=== PATIENT | male | born 1995 | race African-American/Black ===

== ENCOUNTER 2016-09-29 22:16 | Emergency (ER) | payer OTHER ==
[2016-09-29 22:42] VITALS: BP 138/76; PULSE 95; TEMP 99; BMI 28.5
== END 2016-09-29 23:20 | disposition left against medical advice (07) ==
LOC: JER 22:16
DX: Z53.21 Procedure and treatment not carried out due to patient leaving prior to being seen by health care provider (principal)
CPT/HCPCS: 99281-25

== ENCOUNTER 2016-10-02 22:53 | Emergency (ER) | payer OTHER ==
[2016-10-02 23:13] VITALS: BP 135/71; PULSE 73; TEMP 98.4; BMI 28.5
--- NOTE | 2016-10-03 00:34 | PDOC ---
History of Present Illness - General History Source: Patient Exam Limitations: No Limitations - History of Present Illness Initial Comments: 10/03/16 01:01 The patient is a 20-year old male with a significant past medical history of asthma, who presents to the emergency department with a sore throat that began a week ago. He denies any associated cough, fever, chills, headache, and dizziness. He denies any chest pain or shortness of breath. The patient reports sick contacts in his household. He denies abdominal pain, nausea, vomiting, and diarrhea. Allergies: NKDA Social History: No history of smoking, recreational drug use, or ETOH consumption. <Heather Lauren - Last Filed: 10/03/16 01:01> <Loni Tierney - Last Filed: 10/03/16 04:41> - General Chief Complaint: Sore Throat Stated Complaint: THROAT PAIN Time Seen by Provider: 10/03/16 00:29 Past History <Heather Lauren - Last Filed: 10/03/16 01:01> - Past Medical History Asthma: Yes - Immunization History Immunization Up to Date: Yes - Psycho/Social/Smoking Cessation Hx Anxiety: No Suicidal Ideation: No Smoking Status: No Smoking History: Never smoked Have you smoked in the past 12 months: No Number of Cigarettes Smoked Daily: 0 Cigars Per Day: 0 Information on smoking cessation initiated: No Hx Alcohol Use: No Drug/Substance Use Hx: No Substance Use Type: None <Loni Tierney - Last Filed: 10/03/16 04:41> - Past Medical History Allergies/Adverse Reactions: Allergies Allergy/AdvReac Type Severity Reaction Status Date / Time No Known Allergies Allergy Verified 10/02/16 23:11 Home Medications: Ambulatory Orders Albuterol Sulfate Inhaler - [Ventolin Hfa Inhaler -] 1 - 2 inh PO QID PRN Review of Systems - Review of Systems Able to Perform ROS?: Yes Comments:: 10/03/16 01:02 GENERAL/CONSTITUTIONAL: No fever or chills. No weakness. HEAD, EYES, EARS, NOSE AND THROAT: +Sore throat. No change in vision. No ear pain or discharge. CARDIOVASCULAR: No chest pain or shortness of breath. RESPIRATORY: No cough, wheezing, or hemoptysis. GASTROINTESTINAL: No nausea, vomiting, diarrhea or constipation. GENITOURINARY: No dysuria, frequency, or change in urination. MUSCULOSKELETAL: No joint or muscle swelling or pain. No neck or back pain. SKIN: No rash NEUROLOGIC: No headache, vertigo, loss of consciousness, or change in strength/ sensation. ENDOCRINE: No increased thirst. No abnormal weight change. HEMATOLOGIC/LYMPHATIC: No anemia, easy bleeding, or history of blood clots. ALLERGIC/IMMUNOLOGIC: No hives or skin allergy. <Heather Lauren - Last Filed: 10/03/16 01:01> *Physical Exam - Vital Signs Last Vital Signs Temp Pulse Resp BP Pulse Ox 98.4 F 73 14 135/71 100 10/02/16 23:11 10/02/16 23:11 10/02/16 23:11 10/02/16 23:11 10/02/16 23:11 - Physical Exam Comments: 10/03/16 01:02 GENERAL: The patient is awake, alert, and fully oriented, in no acute distress. HEAD: Normal with no signs of trauma. EYES: Pupils equal, round and reactive to light, extraoccular movements intact, sclera anicteric, conjunctiva clear with no pallor. ENT: Ears normal, nares patent, oropharynx clear without exudates. Moist mucous membranes. NECK: Normal range of motion, supple without lymphadenopathy, JVD, or masses. LUNGS: Breath sounds equal, clear to auscultation bilaterally. No wheeze/ crackles. HEART: Regular rate and rhythm, normal S1 and S2 without murmur or rub. ABDOMEN: Soft/nontender/nondistended. BS wnl. No guarding or rebound. No palpable masses. No hepatosplenomegaly. EXTREMITIES: Normal range of motion, no edema. No clubbing or cyanosis. No cords, erythema, or tenderness. NEUROLOGICAL: Cranial nerves II through XII grossly intact. Normal speech, normal gait. PSYCH: Normal mood, normal affect. SKIN: Warm, Dry, normal turgor, no rashes or lesions noted. <Heather Lauren - Last Filed: 10/03/16 01:01> - Vital Signs Last Vital Signs Temp Pulse Resp BP Pulse Ox 98.4 F 73 14 135/71 100 10/02/16 23:11 10/02/16 23:11 10/02/16 23:11 10/02/16 23:11 10/02/16 23:11 <Loni Tierney - Last Filed: 10/03/16 04:41> Medical Decision Making - Medical Decision Making 10/03/16 04:37 Pt comes with viral pharyngitis. He has no other complaints. Pt has strep negative throat sample. He is afebrile. He has no submental nodes. <Loni Tierney - Last Filed: 10/03/16 04:41> *DC/Admit/Observation/Transfer - Attestations Scribe Attestion: 10/03/16 01:01 Documentation prepared by Heather Lauren, acting as medical office assistant for Loni Tierney MD. <Heather Lauren - Last Filed: 10/03/16 01:01> - Discharge Dispostion Admit: No <Loni Tierney - Last Filed: 10/03/16 04:41> Diagnosis at time of Disposition: Viral syndrome - Discharge Dispostion Disposition: HOME Condition at time of disposition: Stable - Patient Instructions Printed Discharge Instructions: DI for Viral Pharyngitis - Post Discharge Activity Work/School Note: Back to Work
== END 2016-10-03 01:44 | disposition home or self-care (01) ==
LOC: JER 22:53
DX: J02.9 Acute pharyngitis, unspecified (principal); B97.89 Other viral agents as the cause of diseases classified elsewhere; J45.909 Unspecified asthma, uncomplicated
CPT/HCPCS: 87070; 87430; 99281-25; 99282-25

== ENCOUNTER 2017-02-17 22:13 | Emergency (ER) | payer OTHER ==
[2017-02-17 22:26] VITALS: BMI 26.4
--- NOTE | 2017-02-17 23:25 | PDOC ---
History of Present Illness - General Chief Complaint: Headache Stated Complaint: PAIN Time Seen by Provider: 02/17/17 23:19 History Source: Patient Exam Limitations: No Limitations - History of Present Illness Initial Comments: 02/17/17 23:24 21yo Male patient w/ PmHx: Asthma presents to ED c/o headache, rapid heart rate , and intermittent right leg pain which began 3 days ago. OTC Tylenol for symptom management. Denies n/v/d, fever, dizziness, CP, Abd pain, back pain, diff breathing or any other complaints at this time. Family Hx: DM, HTN, Renal Failure. PCP- Tan. Timing/Duration: reports: 1 week Severity: Yes: mild Associated Symptoms: denies: denies symptoms, confusion, fatigue, fever/chills, insomnia, loss of consciousness, muscle spasms, nausea/vomiting, numbness in legs/feet, paresthesia, ringing in ears, seizures, sleepy, slurred speech, tingling in legs/feet, trouble walking, vision changes, weakness, other Past History - Travel Traveled outside of the country in the last 30 days: No Close contact w/someone who was outside of country & ill: No - Past Medical History Allergies/Adverse Reactions: Allergies Allergy/AdvReac Type Severity Reaction Status Date / Time No Known Allergies Allergy Verified 02/17/17 22:23 Home Medications: Ambulatory Orders Albuterol Sulfate Inhaler - [Ventolin Hfa Inhaler -] 1 - 2 inh PO QID PRN Acetaminophen [Tylenol] 650 mg PO QID PRN 02/17/17 Asthma: Yes - Immunization History Immunization Up to Date: Yes - Psycho/Social/Smoking Cessation Hx Anxiety: No Suicidal Ideation: No Smoking Status: No Smoking History: Never smoked Have you smoked in the past 12 months: No Number of Cigarettes Smoked Daily: 0 Cigars Per Day: 0 Hx Alcohol Use: No Drug/Substance Use Hx: No Substance Use Type: None Review of Systems - Review of Systems Able to Perform ROS?: Yes Is the patient limited [place] proficient: No Constitutional: No: Chills, Fever HEENTM: No: Blurred Vision, Double Vision Respiratory: No: Cough, Shortness of Breath, Stridor, Wheezing Cardiac (ROS): No: Chest Pain, Lightheadedness, Palpitations ABD/GI: No: Blood Streaked Bowels, Constipated, Diarrhea, Nausea, Poor Appetite , Poor Fluid Intake, Vomiting : No: Burning, Dysuria, Discharge, Flank Pain, Hematuria Musculoskeletal: No: Back Pain Integumentary: No: Bruising, Erythema, Rash, Sweating Neurological: Yes: Headache. No: Numbness, Seizure, Tremors, Unsteady Gait, Ataxia, Dizziness All Other Systems: Reviewed and Negative *Physical Exam - Vital Signs Last Vital Signs Temp Pulse Resp BP Pulse Ox 98 F 88 16 120/64 98 02/17/17 22:25 02/17/17 22:25 02/17/17 22:25 02/17/17 22:25 02/17/17 22:25 - Physical Exam General Appearance: Yes: Nourished, Appropriately Dressed. No: Apparent Distress, Mild Distress, Moderate Distress, Severe Distress HEENT: positive: EOMI, MAYRA, Normal ENT Inspection, Normal Voice, Symmetrical, TMs Normal, Pharynx Normal. negative: Pharyngeal Erythema, Tonsillar Exudate, Tonsillar Erythema, Nasal Congestion, Rhinorrhea, Sinus Tenderness, TM Bulging, TM Dull, TM Erythema Neck: positive: Trachea midline, Supple. negative: Rigid, Decreased range of motion, Stridor, Lymphadenopathy (R), Lymphadenopathy (L) Respiratory/Chest: positive: Lungs Clear, Normal Breath Sounds. negative: Respiratory Distress, Accessory Muscle Use, Labored Respiration, Rapid RR Cardiovascular: positive: Regular Rhythm, Regular Rate Gastrointestinal/Abdominal: positive: Normal Bowel Sounds, Soft. negative: Distended, Guarding, Rebound, Tenderness Musculoskeletal: positive: Normal Inspection. negative: CVA Tenderness Extremity: positive: Normal Capillary Refill, Normal Inspection, Normal Range of Motion. negative: Pedal Edema, Swelling, Calf Tenderness, Erythema, Inflammation Integumentary: positive: Normal Color, Dry, Warm Neurologic: positive: pharmaceutical process engineer II-XII NML intact, Fully Oriented, Alert, Normal Mood/ Affect, Normal Response, Motor Strength 5/5 Heart Score/ECG Review - ECG Impressions Normal ECG: Yes Non-specific ST Elevation: No Ischemic Changes: No Bradycardia: No Torsades erica Pointes: No WPW: No Comment:: 02/18/17 02:40 NSR 72bpm ED Treatment Course - LABORATORY CBC & Chemistry Diagram: 02/17/17 23:40 02/17/17 23:40 - RADIOLOGY Radiology Studies Ordered: Category Date Time Status HEAD CT WITHOUT CONTRAST [CT] Stat CT Scan 02/17/17 23:19 Ordered *DC/Admit/Observation/Transfer Diagnosis at time of Disposition: Headache Qualifiers: Headache type: tension-type Headache chronicity pattern: episodic headache Intractability: not intractable Qualified Code(s): G44.219 - Episodic tension- type headache, not intractable - Discharge Dispostion Disposition: HOME Condition at time of disposition: Stable Admit: No - Referrals Referrals: Harriet Grover MD [Primary Care Provider] - Elías Crisostomo MD [Staff Physician] - - Patient Instructions Printed Discharge Instructions: DI for Migraine Additional Instructions: FOLLOW UP WITH DR. CRISOSTOMO (NEUROLOGY) NEXT WEEK. CALL TO SCHEDULE APPOINTMENT IF SYMPTOMS PERSIST. MOTRIN OR TYLENOL FOR PAIN NEEDED. Print Language: BHUTANESE - Post Discharge Activity Work/School Note: Back to Work
[2017-02-17 23:51] LABS: BASOPHIL 0.6 % (0-2.0); EOSINOPHIL 1.1 % (0-4.5); MCH 26.1 pg (25.7-33.7); MCHC 33.3 g/dl (32.0-35.9); MEAN CELL VOLUME 78.4 fl (80-96); MEAN PLT VOLUME 10.1 fl (7.5-11.1); NEUTROPHILS 62.2 % (42.8-82.8); PLATELET COUNT 175 K/MM3 (134-434); RDW 14.7 % (11.9-15.9); WHITE BLOOD COUNT 7.3 K/mm3 (4.0-10.0)
[2017-02-18 00:07] LABS: URINE APPEARANCE CLEAR; URINE BILIRUBIN NEGATIVE (NEGATIVE); URINE BLOOD NEGATIVE (NEGATIVE); URINE COLOR LTYELLOW; URINE GLUCOSE (UA) NEGATIVE (NEGATIVE); URINE KETONE NEGATIVE (NEGATIVE); URINE LEUK ESTERASE NEGATIVE (NEGATIVE); URINE NITRITE NEGATIVE (NEGATIVE); URINE PROTEIN NEGATIVE (NEGATIVE); URINE UROBILINOGEN NEGATIVE E.U./dl (0.2-1.0)
[2017-02-18 00:14] LABS: ALBUMIN 4.5 g/dl (3.4-5.0); ALK PHOS 77 U/L (45-117); ANION GAP 11 (8-16); CALCIUM 9.4 mg/dL (8.5-10.1); CO2 29 mmol/L (21-32); COCKROFT - GAULT 119.77; CREATININE 1.2 mg/dL (0.7-1.3); GLUCOSE,RANDOM 101 mg/dL (74-106); SGOT/AST 13 U/L (15-37); SGPT/ALT 26 U/L (12-78); TOT PROT 7.6 g/dl (6.4-8.2)
[2017-02-18 00:42] LABS: URINE MARIJUANA THC NEGATIVE ng/ml (CUTOFF=50)
[2017-02-18 02:57] VITALS: BP 122/68; PULSE 83; TEMP 98.2
--- NOTE | 2017-02-18 13:07 | EKG ---
Test Reason : Blood Pressure : / mmHG Vent. Rate : 072 BPM Atrial Rate : 072 BPM P-R Int : 156 ms QRS Dur : 088 ms QT Int : 364 ms P-R-T Axes : 065 059 016 degrees QTc Int : 398 ms POOR DATA QUALITY, INTERPRETATION MAY BE ADVERSELY AFFECTED NORMAL SINUS RHYTHM WITH SINUS ARRHYTHMIA SEPTAL INFARCT , AGE UNDETERMINED ABNORMAL ECG WHEN COMPARED WITH ECG OF 23-APR-2016 01:24, NO SIGNIFICANT CHANGE WAS FOUND Confirmed by STEPHEN RAHMAN MD ([id number]) on 02/18/2017 1:07:11 PM Referred By: Confirmed By:STEPHEN RAHMAN MD
== END 2017-02-18 02:59 | disposition home or self-care (01) ==
LOC: JER 22:13
DX: G44.219 Episodic tension-type headache, not intractable (principal); J45.909 Unspecified asthma, uncomplicated
CPT/HCPCS: 36415; 70450-TC; 80053; 80307; 81003; 84443; 85025; 93005; 93010; 99282-25

== ENCOUNTER 2017-05-04 05:34 | Emergency (ER) | payer OTHER ==
[2017-05-04] MEDS ORDERED: KETOROLAC TROMETHAMINE 60 MG/2 ML VIAL IM ONE (05:52)
[2017-05-04] MEDS ORDERED: KETOROLAC TROMETHAMINE 60 MG/2 ML VIAL ONE (05:56)
[2017-05-04 06:11] VITALS: BP 133/76; PULSE 60; TEMP 98.2; BMI 27.1
--- NOTE | 2017-05-04 06:39 | PDOC ---
History of Present Illness - General Chief Complaint: Pain Stated Complaint: LEFT-SIDED PAIN Time Seen by Provider: 05/04/17 05:50 - History of Present Illness Initial Comments: 05/04/17 06:35 CHIEF COMPLAINT: mid back pain HISTORY OF PRESENT ILLNESS: 21 yo M hx of asthma presents to ED with left midback pain. 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 Over the last four days the pain has increased and is worsened with movement. He denies any trauma or injury to the area of pain. He denies any loss of sensation, numbness or tingling to his extremities. PAST MEDICAL HISTORY: asthma FAMILY HISTORY: Denies SOCIAL HISTORY: Occupation: farmworkers. Denies tobacco, alcohol, illicit drug use. SURGICAL HISTORY: Denies ALLERGIES: No known drug allergies REVIEW OF SYSTEMS General/Constitutional: Denies fever or chills. Denies weakness, weight change. Cardiovascular: Denies chest pain or shortness of breath. Respiratory: Denies cough, wheezing, or hemoptysis. Gastrointestinal: Denies nausea, vomiting, diarrhea or constipation. Genitourinary: Denies dysuria, frequency, or change in urination. Musculoskeletal: L mid back pain x 3 days. Skin and breasts: Denies rash or easy bruising. PHYSICAL EXAM General Appearance: Well-appearing, appropriately dressed. No apparent distress. HEENT: EOMI, PERRLA, normal ENT inspection, normal voice, TMs normal, pharynx normal. No conjunctival pallor. No photophobia, scleral icterus. Neck: No cervical spine Supple. Trachea midline. Respiratory/Chest: Lungs CTAB. Cardiovascular: RRR. S1, S2. Gastrointestinal/Abdominal: Normal bowel sounds. Abdomen soft, non-distended. No tenderness or rebound tenderness. No organomegaly, pulsatile mass, guarding , hernia, hepatomegaly, splenomegaly. Musculoskeletal/Extremities: Reproducible tenderness to L latissimus dorsi, Normal inspection. FROM of all extremities, normal capillary refill. Pelvis Stable. No CVA tenderness. No tenderness to extremities, pedal edema, swelling , erythema or deformity. Integumentary: Appropriate color, dry, warm. No cyanosis, erythema, jaundice or rash Neurologic: tip printer II-XII intact. Fully oriented, alert. Appropriate mood/affect. Motor strength 5/5. No appreciable EOM palsy, facial droop or sensory deficit. 05/04/17 06:41 05/04/17 06:49 Past History - Past Medical History Allergies/Adverse Reactions: Allergies Allergy/AdvReac Type Severity Reaction Status Date / Time No Known Allergies Allergy Verified 05/04/17 05:45 Home Medications: Ambulatory Orders Albuterol Sulfate Inhaler - [Ventolin Hfa Inhaler -] 1 - 2 inh PO QID PRN Diazepam [Valium] 5 mg PO BID #10 tablet MDD 2 05/04/17 Naproxen 250 mg PO BID #14 tablet 05/04/17 Asthma: Yes - Immunization History Immunization Up to Date: Yes - Psycho/Social/Smoking Cessation Hx Anxiety: No Suicidal Ideation: No Smoking Status: No Smoking History: Never smoked Have you smoked in the past 12 months: No Number of Cigarettes Smoked Daily: 0 Cigars Per Day: 0 Information on smoking cessation initiated: No Hx Alcohol Use: No Drug/Substance Use Hx: No Substance Use Type: None *Physical Exam - Vital Signs Last Vital Signs Temp Pulse Resp BP Pulse Ox 98.2 F 60 20 133/76 99 05/04/17 05:46 05/04/17 05:46 05/04/17 05:46 05/04/17 05:46 05/04/17 05:46 ED Treatment Course - RADIOLOGY Radiology Studies Ordered: Category Date Time Status RIBS-LEFT SIDE [RAD] Stat Radiology 05/04/17 06:30 Ordered - Medications Given in the ED: ED Medications Discontinued Medications Generic Name Dose Route Start Last Admin Trade Name Freq PRN Reason Stop Dose Admin Ketorolac Tromethamine 60 mg 05/04/17 05:52 05/04/17 06:04 Toradol Injection - IM 05/04/17 05:53 60 mg ONCE ONE Administration Medical Decision Making - Medical Decision Making 05/04/17 06:41 21 yo M hx of asthma presents to ED with left midback pain. -L rib x-ray -60 mg Toradol *DC/Admit/Observation/Transfer Diagnosis at time of Disposition: Back pain Qualifiers: Back pain location: thoracic back pain Chronicity: acute Back pain laterality: left Qualified Code(s): M54.6 - Pain in thoracic spine - Discharge Dispostion Admit: No - Prescriptions Prescriptions: Naproxen 250 mg PO BID #14 tablet Diazepam [Valium] 5 mg PO BID #10 tablet MDD 2 - Referrals Referrals: Jayy Mccarty MD [Primary Care Provider] - Louis Torres MD [Staff Physician] - - Patient Instructions Printed Discharge Instructions: DI for Thoracic Back Pain Additional Instructions: Please take medications as prescribed. Do not drive or operate machinery while taking Valium. Follow up with orthopedics (referral provided) if symptoms persist past 3-4 days. If you experience any shortness of breath, chest pain, loss of sensation/numbness/tingling to your arms, or any new or worsening symptoms, please return to the ER.
--- NOTE | 2017-05-04 06:47 | PDOC ---
*Physical Exam - Vital Signs Last Vital Signs Temp Pulse Resp BP Pulse Ox 98.2 F 60 20 133/76 99 05/04/17 05:46 05/04/17 05:46 05/04/17 05:46 05/04/17 05:46 05/04/17 05:46 ED Treatment Course - Medications Given in the ED: ED Medications Discontinued Medications Generic Name Dose Route Start Last Admin Trade Name Susan PRN Reason Stop Dose Admin Ketorolac Tromethamine 60 mg 05/04/17 05:52 05/04/17 06:04 Toradol Injection - IM 05/04/17 05:53 60 mg ONCE ONE Administration Medical Decision Making - Medical Decision Making 05/04/17 06:44 Agree with TUG BOAT ENGINEER's evaluation, assessment, and plan. 21M presenting to ER with L side pain after lifting a heavy object 2 days ago. Pt states that pain has gradually worsened. It is reproducible with palpation but also worse with deep inspiration. Pt with PERC score 0. Unlikely PE. Etiology most likely msk given reproducibility with movement and palpation, as well as onset during heavy lifting. Will r/o pneumothorax and rib fx with CXR. - XR chest+ribs - Analgesia *DC/Admit/Observation/Transfer Diagnosis at time of Disposition: Back pain Qualifiers: Back pain location: thoracic back pain Chronicity: acute Back pain laterality: left Qualified Code(s): M54.6 - Pain in thoracic spine - Prescriptions Prescriptions: Naproxen 250 mg PO BID #14 tablet Diazepam [Valium] 5 mg PO BID #10 tablet MDD 2 - Referrals Referrals: Jayy Mccarty MD [Primary Care Provider] - Louis Torres MD [Staff Physician] - - Patient Instructions Printed Discharge Instructions: DI for Thoracic Back Pain Additional Instructions: Please take medications as prescribed. Do not drive or operate machinery while taking Valium. Follow up with orthopedics (referral provided) if symptoms persist past 3-4 days. If you experience any shortness of breath, chest pain, loss of sensation/numbness/tingling to your arms, or any new or worsening symptoms, please return to the ER. - Attestations Physician Attestion: 05/04/17 06:47 I, Dr. Bryant Evans MD, attest that this document has been prepared under my direction and personally reviewed by me in its entirety. I further attest, that it accurately reflects all work, treatment, procedures and medical decision -making performed by me.
[2017-05-04 07:45] LABS: URINE APPEARANCE CLEAR; URINE BILIRUBIN NEGATIVE (NEGATIVE); URINE BLOOD NEGATIVE (NEGATIVE); URINE COLOR YELLOW; URINE GLUCOSE (UA) NEGATIVE (NEGATIVE); URINE KETONE NEGATIVE (NEGATIVE); URINE LEUK ESTERASE NEGATIVE (NEGATIVE); URINE NITRITE NEGATIVE (NEGATIVE); URINE PROTEIN NEGATIVE (NEGATIVE); URINE UROBILINOGEN NEGATIVE mg/dL (0.2-1.0)
== END 2017-05-04 07:00 | disposition home or self-care (01) ==
LOC: JER 05:34
PROC: 3E0233Z Introduction of Anti-inflammatory into Muscle, Percutaneous Approach (ICD-10-PCS; principal; 2017-05-04)
DX: M54.6 Pain in thoracic spine (principal); J45.909 Unspecified asthma, uncomplicated
CPT/HCPCS: 71101-TC; 81003; 87086; 96372; 99282-25

== ENCOUNTER 2017-11-16 22:21 | Emergency (ER) | payer OTHER ==
[2017-11-16 22:42] VITALS: BP 142/79; PULSE 96; TEMP 99.2; BMI 25.0
[2017-11-16] MEDS ORDERED: HYDROCORTISONE ACETATE 25 MG/SUPP.RECT PR ONE (23:58)
--- NOTE | 2017-11-16 23:59 | PDOC ---
History of Present Illness - General History Source: Patient Exam Limitations: No Limitations - History of Present Illness Initial Comments: 11/16/17 23:59 The patient is a 21 year old male, with a significant past medical history of asthma, who presents to the emergency department complaining of hemorrhoids for approx. 3 days. The patient reports he has recently been experiencing pain when having a bowel movement. He denies any recent diarrhea, hematochezia or melena. The patent reports he tried using prep H for the hemorrhoids with minimal relief. The patient reports he came to the emergency department today for evaluation of the hemorrhoid pain. He denies any recent fevers, chills, headache or dizziness. He denies any recent nausea, vomit, diarrhea or constipation. He denies any recent chest pain or shortness of breath. He denies any recent dysuria, frequency, urgency or hematuria. Allergies: NKA <Gildardo Robertson - Last Filed: 11/16/17 23:59> <Parvin Devi - Last Filed: 11/17/17 00:04> - General Chief Complaint: Pain Stated Complaint: PAIN Time Seen by Provider: 11/16/17 23:07 Past History <Gildardo Robertson - Last Filed: 11/16/17 23:59> - Past Medical History Asthma: Yes COPD: No - Immunization History Immunization Up to Date: Yes - Suicide/Smoking/Psychosocial Hx Smoking Status: No Smoking History: Never smoked Have you smoked in the past 12 months: No Number of Cigarettes Smoked Daily: 0 Cigars Per Day: 0 Information on smoking cessation initiated: No Hx Alcohol Use: No Drug/Substance Use Hx: No Substance Use Type: None <Parvin Devi - Last Filed: 11/17/17 00:04> - Past Medical History Allergies/Adverse Reactions: Allergies Allergy/AdvReac Type Severity Reaction Status Date / Time No Known Allergies Allergy Verified 11/16/17 22:38 Home Medications: Ambulatory Orders Albuterol Sulfate Inhaler - [Ventolin Hfa Inhaler -] 1 - 2 inh PO QID PRN Diazepam [Valium] 5 mg PO BID #10 tablet MDD 2 05/04/17 Naproxen 250 mg PO BID #14 tablet 05/04/17 Docusate Sodium [Colace] 100 mg PO DAILY #14 capsule 11/16/17 Hydrocortisone Acetate [Anusol Hc Suppository -] 25 mg RC DAILY #7 supp.rect Review of Systems - Review of Systems Comments:: 11/16/17 23:59 CONSTITUTIONAL: Absent: fever, no chills, no fatigue EYES: Absent: visual changes ENT: Absent: ear pain, no sore throat CARDIOVASCULAR: Absent: chest pain, no palpitations RESPIRATORY: Absent: cough, no SOB GI: Present: +Pain with bowel movement. Absent: abdominal pain, no nausea, no vomiting, no constipation, no diarrhea GENITOURINARY: Absent: dysuria, no frequency, no hematuria MUSKULOSKELETAL: Absent: back pain, no arthralgia, no myalgia SKIN: Absent: rash NEURO: Absent: headache <Gildardo Robertson - Last Filed: 11/16/17 23:59> *Physical Exam - Vital Signs Last Vital Signs Temp Pulse Resp BP Pulse Ox 99.2 F 96 H 20 142/79 98 11/16/17 22:39 11/16/17 22:39 11/16/17 22:39 11/16/17 22:39 11/16/17 22:39 - Physical Exam Comments: 11/17/17 00:00 GENERAL: Well-appearing, well-nourished. No apparent distress. HEENT: Normocephalic, atraumatic. PERRL, EOM intact. CARDIOVASCULAR: Normal S1, S2. Regular rate and rhythm. PULMONARY: Clear to auscultation bilaterally. ABDOMEN: Soft, non-distended, non-tender. RECTAL: No external hemorrhoids EXTREMITIES: Normal ROM in all four extremities. No gross deformities. SKIN: Warm, dry. No rash NEUROLOGICAL: No focal neurological deficits. <Gildardo Robertson - Last Filed: 11/16/17 23:59> - Vital Signs Last Vital Signs Temp Pulse Resp BP Pulse Ox 99.2 F 96 H 20 142/79 98 11/16/17 22:39 11/16/17 22:39 11/16/17 22:39 11/16/17 22:39 11/16/17 22:39 <Parvin Devi - Last Filed: 11/17/17 00:04> *DC/Admit/Observation/Transfer - Attestations Scribe Attestion: 11/17/17 00:00 Documentation prepared by Gildardo Robertson, acting as medical referral coordinator for Parvin Devi MD. <Gildardo Robertson - Last Filed: 11/16/17 23:59> <Parvin Devi - Last Filed: 11/17/17 00:04> Diagnosis at time of Disposition: External hemorrhoid - Discharge Dispostion Disposition: HOME Condition at time of disposition: Stable - Prescriptions Prescriptions: Docusate Sodium [Colace] 100 mg PO DAILY #14 capsule Hydrocortisone Acetate [Anusol Hc Suppository -] 25 mg RC DAILY #7 supp.rect - Referrals Referrals: Vaishali Maddox MD [Primary Care Provider] - - Patient Instructions Printed Discharge Instructions: DI for Hemorrhoids Additional Instructions: You can try Tucks which you can buy over the counter Avoid constipation and the colace will help you with this Please cotton picker operator your medication at [facility] Follow up with your regular doctor return for worsening symptoms - Post Discharge Activity
[2017-11-17] MEDS ORDERED: PHENYLEPHRINE 0.25%/STARCH 1 EACH SUPP.RECT RC ONE
== END 2017-11-17 00:12 | disposition home or self-care (01) ==
LOC: JER 22:21
DX: K64.4 Residual hemorrhoidal skin tags (principal); J45.909 Unspecified asthma, uncomplicated
CPT/HCPCS: 99282-25

== ENCOUNTER 2017-11-27 05:29 | Emergency (ER) | payer SELFPAY ==
--- NOTE | 2017-11-27 05:54 | PDOC ---
History of Present Illness - General Chief Complaint: Sore Throat Stated Complaint: SORE THROAT,COUGH Time Seen by Provider: 11/27/17 05:51 History Source: Patient Exam Limitations: No Limitations - History of Present Illness Initial Comments: 11/27/17 05:58 Best Contact:[phone] Pmhx:Asthma Pshx:N/A Allergies: NKDA 22-year-old male presents to the emergency department complaining of sore throat times one week without fever, chills, nausea/vomiting, facial pains, rhinorrhea, earache, cough, neck/back pain/stiffness, chest pain, shortness of breath, abdominal pains. Patient states he did not he took NyQuil with some relief. Patient denies any other complaints. Timing/Duration: 1 week Past History - Past Medical History Allergies/Adverse Reactions: Allergies Allergy/AdvReac Type Severity Reaction Status Date / Time No Known Allergies Allergy Verified 11/27/17 06:07 Home Medications: Ambulatory Orders NK [No Known Home Medication] 11/27/17 Asthma: Yes COPD: No - Immunization History Immunization Up to Date: Yes - Suicide/Smoking/Psychosocial Hx Smoking Status: No Smoking History: Never smoked Have you smoked in the past 12 months: No Number of Cigarettes Smoked Daily: 0 Cigars Per Day: 0 Hx Alcohol Use: No Drug/Substance Use Hx: No Substance Use Type: None Review of Systems - Review of Systems Able to Perform ROS?: Yes Comments:: 11/27/17 05:57 CONSTITUTIONAL: Absent: fever, chills, diaphoresis, generalized weakness, malaise, loss of appetite HEENT: +throat pain Absent: rhinorrhea, nasal congestion, , throat swelling, difficulty swallowing, mouth swelling, ear pain, eye pain, visual Changes CARDIOVASCULAR: Absent: chest pain, loss of consciousness, palpitations, irregular heart rate, peripheral edema RESPIRATORY: Absent: cough, shortness of breath, dyspnea with exertion, orthopnea, wheezing, stridor, hemoptysis GASTROINTESTINAL: Absent: abdominal pain, abdominal distension, nausea, vomiting, diarrhea, constipation, melena, hematochezia SKIN: Absent: rash, itching, pallor Is the patient limited Beninese proficient: No *Physical Exam - Physical Exam Comments: 11/27/17 05:57 GENERAL: Well developed, well nourished. Awake and alert. No acute distress. HEENT: Normocephalic, atraumatic. PERRLA, EOMI. No conjunctival pallor. Sclera are non- icteric. Moist mucous membranes. Oropharynx is clear. NECK: Supple. Full ROM. No JVD. Carotid pulses 2+ and symmetric, without bruits. No thyromegaly. No lymphadenopathy. CARDIOVASCULAR: Regular rate and rhythm. No murmurs, rubs, or gallops. Distal pulses are 2+ and symmetric. PULMONARY: No evidence of respiratory distress. Lungs clear to auscultation bilaterally. No wheezing, rales or rhonchi. ABDOMINAL: Soft. Non-tender. Non-distended. No rebound or guarding. No organomegaly. Normoactive bowel sounds. MUSCULOSKELETAL Normal range of motion at all joints. No bony deformities or tenderness. No CVA tenderness. SKIN: Warm and dry. Normal capillary refill. No rashes. No jaundice. *DC/Admit/Observation/Transfer Diagnosis at time of Disposition: Viral pharyngitis - Discharge Dispostion Disposition: HOME Condition at time of disposition: Fair Admit: No - Referrals Referrals: Vaishali Maddox MD [Primary Care Provider] - - Patient Instructions Printed Discharge Instructions: DI for Viral Pharyngitis Additional Instructions: Tylenol alternate with Motrin as needed for pain Gargle with salt water Follow up with your physician Return to the ER for severe/persistent/worsening symptoms - Post Discharge Activity
--- NOTE | 2017-11-27 05:57 | PDOC ---
Medical Decision Making - Medical Decision Making 11/27/17 05:56 Pt seen by the Advanced Practice Provider under my direct supervision Ancillary studies reviewed I agree with plan as outlined by the Advanced Practice Provider KORY Jaimes *DC/Admit/Observation/Transfer - Discharge Dispostion Condition at time of disposition: Fair - Referrals Referrals: Vaishali Maddox MD [Primary Care Provider] - - Patient Instructions - Post Discharge Activity
[2017-11-27 06:07] VITALS: BP 140/73; PULSE 110; TEMP 98.9; BMI 25.7
== END 2017-11-27 06:43 | disposition home or self-care (01) ==
LOC: JER 05:29
DX: J02.8 Acute pharyngitis due to other specified organisms (principal); B97.89 Other viral agents as the cause of diseases classified elsewhere
CPT/HCPCS: 87070; 87430; 99282-25

== ENCOUNTER 2018-01-05 16:46 | Emergency (ER) | payer OTHER ==
--- NOTE | 2018-01-05 17:28 | PDOC ---
Rapid Medical Evaluation Chief Complaint: Pain Time Seen by Provider: 01/05/18 17:26 Medical Evaluation: Allergies Allergy/AdvReac Type Severity Reaction Status Date / Time No Known Allergies Allergy Verified 01/05/18 17:23 01/05/18 17:26 I have performed a brief in-person evaluation of this patient. The patient presents with a chief complaint of: R leg pain x 2 weeks, pain shooting up and down leg, ambulatory, can bear weight on leg, denies swelling to legs, denies trauma/injury Pertinent physical exam findings: well appearing, full ROM I have ordered the following: nothing The patient will proceed to the ED for further evaluation. Discharge Disposition - Diagnosis Right leg pain - Referrals - Patient Instructions - Post Discharge Activity
[2018-01-05 17:29] VITALS: BP 141/90; PULSE 95; TEMP 98.9; BMI 25.7
[2018-01-05] MEDS ORDERED: IBUPROFEN 400 MG TABLET (FP) PO ONE ×2 (17:43→17:46)
--- NOTE | 2018-01-05 17:48 | PDOC ---
History of Present Illness - General Chief Complaint: Pain Stated Complaint: PAIN Time Seen by Provider: 01/05/18 17:26 History Source: Patient - History of Present Illness Occurred: reports: other Severity: Yes: moderate Lower Extremity Pain Location: right: knee Past History - Past Medical History Allergies/Adverse Reactions: Allergies Allergy/AdvReac Type Severity Reaction Status Date / Time No Known Allergies Allergy Verified 01/05/18 17:23 Home Medications: Ambulatory Orders NK [No Known Home Medication] 11/27/17 Asthma: Yes COPD: No - Immunization History Immunization Up to Date: Yes - Suicide/Smoking/Psychosocial Hx Smoking Status: No Smoking History: Never smoked Have you smoked in the past 12 months: No Number of Cigarettes Smoked Daily: 0 Cigars Per Day: 0 Information on smoking cessation initiated: No Hx Alcohol Use: No Drug/Substance Use Hx: No Substance Use Type: None Review of Systems - Review of Systems Constitutional: No: Chills, Fever Musculoskeletal: Yes: Joint Pain. No: Joint Swelling *Physical Exam - Vital Signs Last Vital Signs Temp Pulse Resp BP Pulse Ox 98.9 F 95 H 18 141/90 97 01/05/18 17:25 01/05/18 17:25 01/05/18 17:25 01/05/18 17:25 01/05/18 17:25 - Physical Exam General Appearance: Yes: Appropriately Dressed. No: Apparent Distress HEENT: positive: Normal Voice Neck: positive: Supple Respiratory/Chest: negative: Respiratory Distress Extremity: positive: Normal Inspection, Normal Range of Motion, Swelling. negative: Tender Integumentary: positive: Dry, Warm Neurologic: positive: Fully Oriented, Alert, Normal Mood/Affect Medical Decision Making - Medical Decision Making 01/05/18 17:43 22-year-old male, no significant history, here with right knee pain. Patient reports intermittent right knee pain 2 weeks, worse with certain movements and bearing weight. Taking Motrin and Tylenol with some relief. Denies any trauma but states he does a lot of heavy lifting at work. Denies any swelling, fever or chills. No history of similar pain in the past. Patient well-appearing and stable with unremarkable exam. Pain most likely muscular, i.e. overuse. Patient to continue [id number] medication. Given oEvra referral to *DC/Admit/Observation/Transfer Diagnosis at time of Disposition: Right knee pain Qualifiers: Chronicity: acute Qualified Code(s): M25.561 - Pain in right knee - Discharge Dispostion Disposition: HOME Condition at time of disposition: Good - Referrals Referrals: Vaishali Maddox MD [Primary Care Provider] - Keven Mejía MD [Staff Physician] - - Patient Instructions Printed Discharge Instructions: DI for Knee Pain Additional Instructions: Continue taking Motrin or Tylenol for pain. Follow-up with Dr. Mejía of orthopedics in 1-2 weeks - Post Discharge Activity
== END 2018-01-05 17:53 | disposition home or self-care (01) ==
LOC: JERFT 16:46
DX: M25.561 Pain in right knee (principal)
CPT/HCPCS: 99281-25

== ENCOUNTER 2018-08-25 16:06 | Emergency (ER) | payer OTHER ==
[2018-08-25 16:12] VITALS: BP 138/68; PULSE 102; TEMP 98.1; BMI 25.7
[2018-08-25] MEDS ORDERED: IBUPROFEN 600 MG TABLET (FP) PO ONE ×2 (16:48→16:56)
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
[2018-08-25 17:26] LABS: URINE APPEARANCE CLEAR; URINE BILIRUBIN NEGATIVE (<2.0 mg/dL); URINE COLOR STRAW; URINE GLUCOSE (UA) NEGATIVE (NEGATIVE); URINE KETONE NEGATIVE (NEGATIVE); URINE LEUK ESTERASE NEGATIVE (NEGATIVE); URINE NITRITE NEGATIVE (NEGATIVE); URINE PROTEIN NEGATIVE (NEGATIVE); URINE UROBILINOGEN NEGATIVE mg/dL (0.2-1.0)
== END 2018-08-25 18:08 | disposition home or self-care (01) ==
LOC: JERFT 16:06
DX: N41.9 Inflammatory disease of prostate, unspecified (principal); Z86.19 Personal history of other infectious and parasitic diseases
CPT/HCPCS: 81003; 87086; 99281-25

== ENCOUNTER 2018-09-18 11:13 | Emergency (ER) | payer OTHER ==
[2018-09-18 11:35] VITALS: BP 126/74; PULSE 96; TEMP 98.4; BMI 25.7
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
== END 2018-09-18 13:12 | disposition home or self-care (01) ==
LOC: JERFT 11:13
DX: S16.1XXA Strain of muscle, fascia and tendon at neck level, initial encounter (principal); S29.012A Strain of muscle and tendon of back wall of thorax, initial encounter; V43.62XA Car passenger injured in collision with other type car in traffic accident, initial encounter; Y92.414 Local residential or business street as the place of occurrence of the external cause; Y93.89 Activity, other specified; Y99.8 Other external cause status
CPT/HCPCS: 99281-25

== ENCOUNTER 2018-09-19 16:26 | Emergency (ER) | payer OTHER ==
[2018-09-19 16:37] VITALS: BP 136/58; PULSE 91; TEMP 98.7; BMI 25.7
--- NOTE | 2018-09-19 18:00 | PDOC ---
History of Present Illness - General Chief Complaint: Palpitations Stated Complaint: CHEST PAIN Time Seen by Provider: 09/19/18 17:13 History Source: Patient Exam Limitations: No Limitations - History of Present Illness Initial Comments: 09/19/18 17:39 22 year old man with history of asthma and heart palpitations who presents with a 2 min episode of "heart flutters" associated with slight lightheadedness. The patient has had these episodes for the past 10 years and they typically occur 2-3 times a year, last for 2 min and resolve on their own. The patient reports that the episodes worsen with lying back. The patient denies shortness of breath, nausea or diaphoresis with these symptoms. He denies recent illness, fevers, travel, vomiting, diarrhea, dysuria, hematuria. He has no other complaints at bedside. PCP: Tan Past History - Past Medical History Allergies/Adverse Reactions: Allergies Allergy/AdvReac Type Severity Reaction Status Date / Time No Known Allergies Allergy Verified 09/18/18 11:32 Home Medications: Ambulatory Orders NK [No Known Home Medication] 09/19/18 Asthma: Yes COPD: No - Surgical History Cholecystectomy: No Lung Surgery: No - Immunization History Immunization Up to Date: Yes - Suicide/Smoking/Psychosocial Hx Smoking Status: No Smoking History: Never smoked Have you smoked in the past 12 months: No Number of Cigarettes Smoked Daily: 0 Cigars Per Day: 0 Information on smoking cessation initiated: No Hx Alcohol Use: No Drug/Substance Use Hx: No Substance Use Type: None Review of Systems - Review of Systems Able to Perform ROS?: Yes Is the patient limited Nigerian proficient: No Constitutional: No: Chills, Diaphoresis, Fever HEENTM: No: Blurred Vision, Tinnitus Respiratory: No: Cough, Orthopnea, Shortness of Breath Cardiac (ROS): Yes: Lightheadedness, Palpitations. No: Chest Pain, Syncope ABD/GI: No: Constipated, Diarrhea, Nausea, Vomiting : No: Burning, Hematuria, Incontinence Neurological: No: Headache, Numbness, Paresthesia, Tingling *Physical Exam - Vital Signs Last Vital Signs Temp Pulse Resp BP Pulse Ox 98.7 F 91 H 16 136/58 L 100 09/19/18 16:33 09/19/18 16:33 09/19/18 16:33 09/19/18 16:33 09/19/18 16:33 - Physical Exam Comments: 09/19/18 18:19 GENERAL: Awake, alert, and fully oriented, in no acute distress HEAD: No signs of trauma, normocephalic, atraumatic EYES: + R eye deviation (chronic), EOMI, sclera anicteric, conjunctiva clear ENT: oropharynx clear without exudates. Moist mucosa NECK: Normal ROM, supple LUNGS: No distress, speaks full sentences, clear to auscultation bilaterally HEART: Regular rate and rhythm, normal S1 and S2, no murmurs, rubs or gallops, peripheral pulses normal and equal bilaterally. ABDOMEN: Soft, nontender, normoactive bowel sounds. No guarding, no rebound. No masses EXTREMITIES : Normal inspection, Normal range of motion, no edema. No clubbing or cyanosis. NEUROLOGICAL: Cranial nerves II through XII grossly intact. Normal speech, no focal sensorimotor deficits SKIN: Warm, Dry, normal turgor, no rashes or lesions noted Moderate Sedation - Procedure Monitoring Vital Signs: Procedure Monitoring Vital Signs Temperature 98.7 F 09/19/18 16:33 Pulse Rate 91 H 09/19/18 16:33 Respiratory Rate 16 09/19/18 16:33 Blood Pressure 136/58 L 09/19/18 16:33 O2 Sat by Pulse Oximetry (%) 100 09/19/18 16:33 ED Treatment Course - LABORATORY CBC & Chemistry Diagram: 09/19/18 17:43 09/19/18 17:43 Medical Decision Making - Medical Decision Making 09/19/18 18:20 22 year old man with history of asthma and heart palpitations who presents with a 2 min episode of "heart flutters" associated with slight lightheadedness. The patient has had these episodes for the past 10 years and they typically occur 2-3 times a year, last for 2 min and resolve on their own. The patient reports that the episodes worsen with lying back. The patient denies shortness of breath, nausea or diaphoresis with these symptoms. He denies recent illness, fevers, travel, vomiting, diarrhea, dysuria, hematuria. He has no other complaints at bedside. ED Course: arrythmia vs ACS vs electrolyte abnormality cbc, cmp, trop, ekg EKG: normal sinus rhythm w/ sinus arrythmia HR 83, no interval abnormalities, narrow QRS, ST elevation in V2 > 1mm, ST depression in II and III < 1mm. T wave segments and morphology normal. Unchanged from prior EKG 05/2018 Dr. Moulton contacted. Will follow patient in clinic. cbc, cmp, trop- negative Patient stable for discharge. Informed of all lab and imaging results. Given follow up instructions and strict return precautions. Patient expressed understanding and agree to plan. *DC/Admit/Observation/Transfer Diagnosis at time of Disposition: Palpitations - Discharge Dispostion Disposition: HOME Condition at time of disposition: Stable Decision to Admit order: No - Referrals Referrals: Vaishali Maddox MD [Primary Care Provider] - Kyrie Moulton MD [Staff Physician] - - Patient Instructions Printed Discharge Instructions: DI for Arrhythmias, DI for Palpitations Additional Instructions: You were seen in the ED for complaints of heart palpitations. In the ED you were evaluated with labwork and ekg. Your results were unremarkable. There does not appear to be an acute need for immediate hospitalization. You are advised to follow up with your Primary Care Physician within 1 week. You were given a referral to Cardiology and are advised to follow up within 1 week. Return to the ED immediately if you experience chest pain, loss of consciousness , lightheadedness, nausea, excessive sweating, shortness of breath, vomiting, diarrhea, abdominal pain or fever. - Post Discharge Activity
[2018-09-19 18:05] LABS: BASO % 0.6 % (0-2.0); HEMATOCRIT 46.3 % (35.4-49); HEMOGLOBIN 16.3 GM/dL (11.7-16.9); LYMPH % 27.6 % (8-40); MCH 27.8 pg (25.7-33.7); MCHC 35.3 g/dl (32.0-35.9); MEAN CELL VOLUME 78.6 fl (80-96); MEAN PLT VOLUME 9.8 fl (7.5-11.1); MONO % 8.2 % (3.8-10.2); NEUT % 62.6 % (42.8-82.8); RBC 5.89 M/mm3 (4.00-5.60); RDW 14.4 % (11.9-15.9); WHITE BLOOD COUNT 4.7 K/mm3 (4.0-10.0)
--- NOTE | 2018-09-19 18:05 | PDOC ---
Attending Attestation - Medical Decision Making 09/19/18 18:18 Documentation prepared by Gildardo Robertson, acting as medical coordinator pesticide use for Bryant Evans MD. <Gildardo Robertson - Last Filed: 09/19/18 18:18> - Resident Resident Name: Ilana Canales - ED Attending Attestation I have performed the following: I have examined & evaluated the patient, The case was reviewed & discussed with the resident, I agree w/resident's findings & plan, Exceptions are as noted - HPI HPI: 09/19/18 18:02 The patient is a 22 year old male, with a significant PMH of asthma, who presents to the emergency department with palpitations occurring just prior to arrival. The patient states the episode of palpitations lasted for approx 2 minutes before resolving on its own. The patent states he has been having episodes of palpitations since [employer] School which occur approx 2-3x per year. The patient denies any chest pain, diaphoresis, lightheadedness, nausea, leg swelling or dizziness. Denies any recent sick contacts or illness. Denies any family history of cardiac disease, arrhythmias, or sudden cardiac . The patient denies chest pain, shortness of breath, headache and dizziness. Denies fever, chills, nausea, vomit, diarrhea and constipation. Denies dysuria, frequency, urgency and hematuria. Allergies: NKA - Physicial Exam PE: 09/19/18 18:03 "GENERAL: Awake, alert, and fully oriented, in no acute distress. HEAD: No signs of trauma EYES: PERRLA, EOMI, sclera anicteric, conjunctiva clear ENT: Auricles normal inspection, hearing grossly normal, nares patent, oropharynx clear without exudates. Moist mucosa NECK: Nontender, no stepoffs, Normal ROM, supple, no lymphadenopathy, JVD, or masses LUNGS: Breath sounds equal, clear to auscultation bilaterally. No wheezes, and no crackles HEART: Regular rate and rhythm, normal S1 and S2, no murmurs, rubs or gallops ABDOMEN: Soft, nontender, normoactive bowel sounds. No guarding, no rebound. No masses EXTREMITIES: Normal range of motion, no edema. No clubbing or cyanosis. No cords, erythema, or tenderness NEUROLOGICAL: Cranial nerves II through XII intact. 5/5 strength and sensation in all extremities, Normal speech, normal gait, normal cerebellar function SKIN: Warm, Dry, normal turgor, no rashes or lesions noted. - Medical Decision Making 09/19/18 18:03 22 M with palpitations x 2 minutes, now resolved. EKG shows 1mm ST elevation in V2 with saddle-shaped morphology, possibly representing Brugada type 2/3. This is consistent with previous EKG, no acute changes. Pt with no family history of sudden . Pt without h/o syncope. - Labs, trop - Cards consult 09/19/18 18:[address] Moulton, who recommends outpt cards f/u if Brugada syndrome is suspected Dispo pending labs 09/19/18 18:31 Labs wnl Pt is well appearing, with normal vitals. Clinically stable for DC at this time. I discussed the physical exam findings, ancillary test results and final diagnoses with the patient. I answered all of the patient's questions. The patient was satisfied with the care received and felt comfortable with the discharge plan and treatment plan. The patient agrees to follow up with the primary care physician within 24-72 hours. <Bryant Evans - Last Filed: 09/20/18 18:26>
[2018-09-19 18:20] LABS: PLATELET COUNT 171 K/MM3 (134-434); PLATELET ESTIMATE ADEQUATE
[2018-09-19 18:30] LABS: ALBUMIN 4.3 g/dl (3.4-5.0); ALK PHOS 65 U/L (45-117); ANION GAP 4 MMOL/L (8-16); BILIRUBIN,TOTAL 1.1 mg/dL (0.2-1); BLOOD UREA NITROGEN 11 mg/dL (7-18); CALCIUM 8.9 mg/dL (8.5-10.1); CHLORIDE 102 mmol/L (98-107); CO2 33 mmol/L (21-32); CREATININE 1.2 mg/dL (0.55-1.3); GLUCOSE,RANDOM 97 mg/dL (74-106); POTASSIUM 4.3 mmol/L (3.5-5.1); SGOT/AST 13 U/L (15-37); SGPT/ALT 20 U/L (13-61); SODIUM 139 mmol/L (136-145); TOT PROT 7.6 g/dl (6.4-8.2)
--- NOTE | 2018-09-20 16:57 | EKG ---
Test Reason : Blood Pressure : / mmHG Vent. Rate : 083 BPM Atrial Rate : 083 BPM P-R Int : 148 ms QRS Dur : 080 ms QT Int : 344 ms P-R-T Axes : 080 074 028 degrees QTc Int : 404 ms NORMAL SINUS RHYTHM WITH SINUS ARRHYTHMIA POSSIBLE LEFT ATRIAL ENLARGEMENT SEPTAL INFARCT (CITED ON OR BEFORE 18-FEB-2017) ABNORMAL ECG WHEN COMPARED WITH ECG OF 05-JUN-2018 19:13, NO SIGNIFICANT CHANGE WAS FOUND Confirmed by MD Chris, Chaz ([id number]) on 09/20/2018 4:56:38 PM Referred By: Confirmed By:Chaz Perez MD
== END 2018-09-19 18:50 | disposition home or self-care (01) ==
LOC: JER 16:26
DX: R00.2 Palpitations (principal); J45.909 Unspecified asthma, uncomplicated
CPT/HCPCS: 36415; 80053; 84484; 85025; 93005; 93010; 99283-25

== ENCOUNTER 2018-10-30 11:56 | Emergency (ER) | payer SELFPAY, OTHER | END 2018-10-30 20:48 | disposition home or self-care (01) | LOC: JER 11:56 ==

== ENCOUNTER 2018-12-21 08:55 | Day surgery (SDC) | payer OTHER ==
[2018-12-21 09:03] VITALS: BMI 25.7
[2018-12-21] MEDS ORDERED: SODIUM CHLORIDE 1,000 ML IV STA (09:21)
[2018-12-21 09:50] LABS: BASO % 0.2 % (0-2.0); HEMATOCRIT 47.7 % (35.4-49); HEMOGLOBIN 16.4 GM/dL (11.7-16.9); LYMPH % 6.6 % (8-40); MCH 27.7 pg (25.7-33.7); MCHC 34.3 g/dl (32.0-35.9); MEAN CELL VOLUME 80.6 fl (80-96); MEAN PLT VOLUME 10.6 fl (7.5-11.1); MONO % 10.5 % (3.8-10.2); NEUT % 82.7 % (42.8-82.8); PLATELET COUNT 167 K/MM3 (134-434); RBC 5.92 M/mm3 (4.00-5.60); RDW 14.6 % (11.9-15.9); WHITE BLOOD COUNT 9.4 K/mm3 (4.0-10.0)
--- NOTE | 2018-12-21 09:53 | PDOC ---
History of Present Illness - General Chief Complaint: Pain Stated Complaint: FOOD POISONING SYMPTOMS Time Seen by Provider: 12/21/18 09:12 History Source: Patient - History of Present Illness Timing/Duration: reports: constant Past History - Past Medical History Allergies/Adverse Reactions: Allergies Allergy/AdvReac Type Severity Reaction Status Date / Time No Known Allergies Allergy Verified 12/21/18 09:02 Home Medications: Ambulatory Orders NK [No Known Home Medication] 09/19/18 Asthma: Yes COPD: No - Surgical History Cholecystectomy: No Lung Surgery: No - Immunization History Immunization Up to Date: Yes - Suicide/Smoking/Psychosocial Hx Smoking Status: No Smoking History: Never smoked Have you smoked in the past 12 months: No Number of Cigarettes Smoked Daily: 0 Cigars Per Day: 0 Hx Alcohol Use: No Drug/Substance Use Hx: No Substance Use Type: None Review of Systems - Review of Systems Constitutional: No: Chills, Fever ABD/GI: Yes: Diarrhea, Abdominal cramping. No: Nausea, Vomiting : No: Dysuria, Flank Pain, Hematuria *Physical Exam - Vital Signs Last Vital Signs Temp Pulse Resp BP Pulse Ox 99.5 F 119 H 18 139/64 96 12/21/18 09:02 12/21/18 09:02 12/21/18 09:02 12/21/18 09:02 12/21/18 09:02 - Physical Exam General Appearance: Yes: Appropriately Dressed. No: Apparent Distress HEENT: positive: Normal Voice Neck: positive: Supple Respiratory/Chest: negative: Respiratory Distress Gastrointestinal/Abdominal: positive: Normal Bowel Sounds, Tender (ttp to periumbilicus and ? over RLQ), Soft. negative: Distended, Guarding, Rebound Musculoskeletal: negative: CVA Tenderness Integumentary: positive: Dry, Warm Neurologic: positive: Fully Oriented, Alert, Normal Mood/Affect ED Treatment Course - LABORATORY CBC & Chemistry Diagram: 12/21/18 09:30 12/21/18 09:30 Medical Decision Making - Medical Decision Making 12/21/18 09:19 23 yo FM, no sig hx, here w/ abd pain, diarrhea and chills. Pt started ~ 1 hr after eating an egg/bates/cheese sandwich at [employer] yesterday morning. No n/v. No sick contacts See exam Gastroenteritis vs appy Tachy to 119 w/ poorly localized ttp on abd exam -pain control -IVF -labs -?CT 12/21/18 13:[address] read as possible early appy (pt refused IV contrast per radiology). Continues c/o abd pain. Will get surgical consult at this time 12/21/18 14:10 Case d/w Dr Forde who has since reviewed images and recommends pre-op labs, will be down to evaluate pt. Aware that pt last ate yesterday 12/21/18 15:46 Dr Forde at bedside evaluating pt , states pt to be admitted to satellite under her service. Pt to go to the OR today *DC/Admit/Observation/Transfer Diagnosis at time of Disposition: RLQ abdominal pain Appendicitis Qualifiers: Appendicitis type: acute appendicitis Acute appendicitis type: other Qualified Code(s): K35.890 - Other acute appendicitis without perforation or gangrene - Discharge Dispostion Condition at time of disposition: Fair Decision to Admit order: Yes - Referrals - Patient Instructions - Post Discharge Activity
[2018-12-21 10:17] LABS: ALBUMIN 4.4 g/dl (3.4-5.0); ALK PHOS 66 U/L (45-117); ANION GAP 7 MMOL/L (8-16); BILIRUBIN,TOTAL 2.3 mg/dL (0.2-1); BLOOD UREA NITROGEN 12 mg/dL (7-18); CALCIUM 8.8 mg/dL (8.5-10.1); CHLORIDE 104 mmol/L (98-107); CO2 27 mmol/L (21-32); CREATININE 1.4 mg/dL (0.55-1.3); GLUCOSE,RANDOM 123 mg/dL (74-106); POTASSIUM 4.1 mmol/L (3.5-5.1); SGOT/AST 17 U/L (15-37); SGPT/ALT 21 U/L (13-61); SODIUM 139 mmol/L (136-145); TOT PROT 7.6 g/dl (6.4-8.2)
[2018-12-21 10:39] LABS: URINE APPEARANCE CLEAR; URINE BILIRUBIN NEGATIVE (NEGATIVE); URINE COLOR YELLOW; URINE GLUCOSE (UA) NEGATIVE (NEGATIVE); URINE KETONE TRACE (NEGATIVE); URINE LEUK ESTERASE NEGATIVE (NEGATIVE); URINE NITRITE NEGATIVE (NEGATIVE); URINE PROTEIN NEGATIVE (NEGATIVE); URINE UROBILINOGEN 0.2 mg/dL (0.2-1.0)
--- NOTE | 2018-12-21 11:19 | PDOC ---
*Physical Exam - Vital Signs Last Vital Signs Temp Pulse Resp BP Pulse Ox 99.5 F 119 H 18 139/64 96 12/21/18 09:02 12/21/18 09:02 12/21/18 09:02 12/21/18 09:02 12/21/18 09:02 - Physical Exam Comments: 12/21/18 11:19 The patient was examined by [KORY Bowers] under my direct supervision. I personally evaluated the patient. I concur with the above findings and the plan of care. ED Treatment Course - LABORATORY CBC & Chemistry Diagram: 12/21/18 09:30 12/21/18 09:30 - ADDITIONAL ORDERS Additional order review: Laboratory Results 12/21/18 12/21/18 10:20 09:30 Sodium 139 Potassium 4.1 Chloride 104 Carbon Dioxide 27 Anion Gap 7 L BUN 12 Creatinine 1.4 H Creat Clearance w eGFR 61.75 Random Glucose 123 H Calcium 8.8 Total Bilirubin 2.3 H AST 17 ALT 21 Alkaline Phosphatase 66 Total Protein 7.6 Albumin 4.4 Urine Color Yellow Urine Appearance Clear Urine pH 5.0 D Ur Specific [place] 1.017 Urine Protein Negative Urine Glucose (UA) Negative Urine Ketones Trace H Urine Blood Negative Urine Nitrite Negative Urine Bilirubin Negative Urine Urobilinogen 0.2 Ur Leukocyte Esterase Negative 12/21/18 09:30 RBC 5.92 H MCV 80.6 MCHC 34.3 RDW 14.6 MPV 10.6 Neutrophils % 82.7 Lymphocytes % 6.6 L D Monocytes % 10.5 H Eosinophils % 0.0 D Basophils % 0.2 - Medications Given in the ED: ED Medications Discontinued Medications Generic Name Dose Route Start Last Admin Trade Name Susan PRN Reason Stop Dose Admin Sodium Chloride 1,000 mls @ 1,000 mls/hr 12/21/18 09:21 12/21/18 09:42 Normal Saline - IV 12/21/18 10:20 1,000 mls/hr ASDIR STA Administration *DC/Admit/Observation/Transfer Diagnosis at time of Disposition: RLQ abdominal pain, Appendicitis - Discharge Dispostion Disposition: HOME Condition at time of disposition: Good - Prescriptions - Referrals - Patient Instructions - Post Discharge Activity
[2018-12-21] MEDS ORDERED: ACETAMINOPHEN INJECTION 100 ML IVPB ONE (13:29)
[2018-12-21] MEDS ORDERED: ACETAMINOPHEN 1000 MG/100 ML VIAL (NON FORMULARY) IVPB ONE (13:39)
[2018-12-21] MEDS ORDERED: BENZOIN TINCTURE SWABSTICK TP ONE (15:48)
[2018-12-21] MEDS ORDERED: BUPIVACAINE HCL/PF 0.5% (5MG/ML) 10 ML VIAL ONE (15:49)
[2018-12-21] MEDS ORDERED: PROMETHAZINE HCL 25 MG/1 ML VIAL IVPUSH PRN (15:50)
[2018-12-21] MEDS ORDERED: ONDANSETRON 4 MG/2 ML VIAL IVPUSH PRN (15:50)
[2018-12-21] MEDS ORDERED: LACTATED RINGERS SOLUTION 1,000 ML IV SCH (16:00)
--- NOTE | 2018-12-21 16:05 | HP ---
Admitting History and Physical - Admission Chief Complaint: periumbilical pain History of Present Illness: 23yo M with asthma, rare use of prn albuterol, presented to ER with periumbilical pain beginning yesterday morning, thought it was from bad food, but persisted throughout the day without full relief from ibuprofen or having diarrhea (multiple times). He had a little nausea, but no vomiting, no f/c, no anorexia, but last food was ~5pm yesterday. This morning he had some vitamin water and a snapple, around 9am. Hungry now. Voiding ok. No recent illness. His younger brother had appendectomy a few years ago. In ER, he is afebrile with wbc 9.4, and CT shows mildly prominent appendix with no significant surrounding inflammation possibly consistent with early appendicitis. He is seen and examined in ER holding, moving well, with IV fluids running, no antibiotics yet. He did get pain medicine and has almost no pain at this time. History Source: Patient Limitations to Obtaining History: No Limitations - Past Medical History Pulmonary: Yes: Asthma - Past Surgical History Additional Past Surgical History: nasal fracture repair - Smoking History Smoking history: Never smoked Have you smoked in the past 12 months: No - Alcohol/Substance Use Hx Alcohol Use: Yes (rarely) History of Substance Use: reports: None - Social History Usual Living Arrangement: Yes: Other (with his aunt) ADL: Independent Occupation: rocío at [employer] Medications - Allergies Allergies/Adverse Reactions: Allergies Allergy/AdvReac Type Severity Reaction Status Date / Time No Known Allergies Allergy Verified 12/21/18 09:02 - Home Medications Home Medications: Ambulatory Orders Acetaminophen [Tylenol .Regular Strength -] 650 mg PO Q6H tablet 12/22/18 Albuterol Sulfate Inhaler - [Ventolin HFA Inhaler -] 2 puff IH Q4H PRN inhaler 12/22/18 Ibuprofen [Motrin -] 600 mg PO Q6H tablet 12/22/18 Oxycodone HCl/Acetaminophen [Percocet 5-325 mg Tablet] 1 tab PO Q6H #12 tablet MDD 6 12/22/18 Home Medications (free text): prn albuterol - rare use, last was last year Family Disease History - Family Disease History Family Disease History: Other: Father (HTN), Mother (HTN), Brother ( appendectomy at ~16) Review of Systems - Review of Systems Constitutional: denies: Chills, Fever, Loss of Appetite Eyes: reports: Other (glasses). denies: Recent Change in Vision HENT: denies: Difficult Swallowing, Nasal Congestion, Throat Pain Neck: denies: Swollen Glands, Tenderness Cardiovascular: denies: Chest Pain, Palpitations Respiratory: denies: Cough, SOB Gastrointestinal: reports: Abdominal Pain (with hpi), Diarrhea, Nausea. denies : Constipation, Vomiting Genitourinary: denies: Burning, Dysuria Musculoskeletal: denies: Back Pain, Joint Pain, Muscle Pain Integumentary: denies: Change in Color, Rash Neurological: denies: Dizziness, Headache Psychiatric: denies: Anxiety, Depression Physical Examination Vital Signs: Vital Signs Temperature 98.9 F 12/21/18 14:45 Pulse Rate 97 H 12/21/18 14:45 Respiratory Rate 18 12/21/18 14:45 Blood Pressure 136/65 12/21/18 14:45 O2 Sat by Pulse Oximetry (%) 96 12/21/18 14:45 Constitutional: Yes: Well Nourished, No Distress, Calm Eyes: Yes: Conjunctiva Clear, EOM Intact HENT: Yes: Atraumatic, Normocephalic Neck: Yes: Supple, Trachea Midline Cardiovascular: Yes: Tachycardia. No: Pulse Irregular Respiratory: Yes: Regular, CTA Bilaterally. No: Wheezes Gastrointestinal: Yes: Soft, Hypoactive Bowel Sounds. No: Distention, Tenderness (no real tenderness to deep palpation, but reports had a little centrally earlier before pain medicine) ...Rectal Exam: Yes: Deferred Renal/: No: CVA Tenderness - Left, CVA Tenderness - Right Musculoskeletal: No: Joint Stiffness, Joint Swelling Extremities: No: Cool, Cyanosis Edema: No Peripheral Pulses WNL: Yes Integumentary: Yes: Tattoos. No: Jaundice, Rash Neurological: Yes: Alert, Oriented. No: Unsteady Gait Psychiatric: Yes: Alert, Oriented Labs: CBC, BMP 12/21/18 09:30 12/21/18 09:30 CMP Sodium 139 mmol/L (136-145) 12/21/18 09:30 Potassium 4.1 mmol/L (3.5-5.1) 12/21/18 09:30 Chloride 104 mmol/L (98-107) 12/21/18 09:30 Carbon Dioxide 27 mmol/L (21-32) 12/21/18 09:30 Anion Gap 7 MMOL/L (8-16) L 12/21/18 09:30 BUN 12 mg/dL (7-18) 12/21/18 09:30 Creatinine 1.4 mg/dL (0.55-1.3) H 12/21/18 09:30 Creat Clearance w eGFR 61.75 (>60) 12/21/18 09:30 Random Glucose 123 mg/dL (74-106) H 12/21/18 09:30 Calcium 8.8 mg/dL (8.5-10.1) 12/21/18 09:30 Total Bilirubin 2.3 mg/dL (0.2-1) H 12/21/18 09:30 AST 17 U/L (15-37) 12/21/18 09:30 ALT 21 U/L (13-61) 12/21/18 09:30 Alkaline Phosphatase 66 U/L (45-117) 12/21/18 09:30 Total Protein 7.6 g/dl (6.4-8.2) 12/21/18 09:30 Albumin 4.4 g/dl (3.4-5.0) 12/21/18 09:30 Urine Test Results Urine Color Yellow 12/21/18 10:20 Urine Appearance Clear 12/21/18 10:20 Urine pH 5.0 (5.0-8.0) D 12/21/18 10:20 Ur Specific [place] 1.017 (1.010-1.035) 12/21/18 10:20 Urine Protein Negative (NEGATIVE) 12/21/18 10:20 Urine Glucose (UA) Negative (NEGATIVE) 12/21/18 10:20 Urine Ketones Trace (NEGATIVE) H 12/21/18 10:20 Urine Blood Negative (NEGATIVE) 12/21/18 10:20 Urine Nitrite Negative (NEGATIVE) 12/21/18 10:20 Urine Bilirubin Negative (NEGATIVE) 12/21/18 10:20 Ur Leukocyte Esterase Negative (NEGATIVE) 12/21/18 10:20 Imaging - Results Cat Scan: Report Reviewed, Image Reviewed (images reviewed - appendix visualized , mildly prominent, very small area of hyperenhancement ?hyperemia ?fecalith, no periappendiceal inflammation) Problem List - Problems (1) Appendicitis Assessment/Plan: likely early appendicitis, no signs of peritonitis admit to surgery 23H/satellite NPO/IVF until postop periop antibiotics DVT prophylaxis pain meds prn, nonnarcotics first line Discussed with patient risks, benefits and alternatives of laparoscopic possible open appendectomy, including but not limited to bleeding, infection, injury to adjacent structures, intestinal leak or injury, intraabdominal abscess , incisional hernia, need for further procedures, ; alternatives include antibiotics, delayed or no surgery - risks of this include failure of nonoperative therapy, perforation, sepsis, recurrence, . Patient desires to proceed with operation - will take to OR for above. Informed consent signed for same. Code(s): K37 - UNSPECIFIED APPENDICITIS Qualifiers: Appendicitis type: acute appendicitis Acute appendicitis type: other Qualified Code(s): K35.890 - Other acute appendicitis without perforation or gangrene; K35.89 - Other acute appendicitis (2) Periumbilical pain Code(s): R10.33 - PERIUMBILICAL PAIN (3) Asthma Assessment/Plan: prn albuterol Code(s): J45.909 - UNSPECIFIED ASTHMA, UNCOMPLICATED Qualifiers: Asthma severity: mild Asthma persistence: intermittent Asthma complication type: uncomplicated Qualified Code(s): J45.20 - Mild intermittent asthma, uncomplicated
[2018-12-21] MEDS ORDERED: LIDOCAINE HCL/PF 2% SDV 5ML VIAL ONE (16:10)
[2018-12-21] MEDS ORDERED: SODIUM CHLORIDE 0.9% P/F 10 ML VIAL IJ ONE (16:10)
[2018-12-21] MEDS ORDERED: ONDANSETRON 4 MG/2 ML VIAL ONE ×2 (16:10→18:37)
[2018-12-21] MEDS ORDERED: ceFAZolin SODIUM 1 GM VIAL ONE (16:10)
[2018-12-21] MEDS ORDERED: DEXAMETHASONE SOD PHOSPHATE 4 MG/1 ML VIAL ONE (16:10)
[2018-12-21] MEDS ORDERED: PROPOFOL 20 ML ONE (16:11)
[2018-12-21] MEDS ORDERED: MIDAZOLAM HCL 2 MG/2 ML SINGLE DOSE VIAL ONE (16:12)
[2018-12-21] MEDS ORDERED: ROCURONIUM BROMIDE 50 MG/5 ML VIAL ONE (16:12)
[2018-12-21] MEDS ORDERED: ALBUTEROL SO4 8 GM HFA INHALER IH PRN ×2 (16:14→18:15)
[2018-12-21] MEDS ORDERED: cefOXitin SODIUM 2 GM VIAL (RESTRICTED TO ID) IVPB ONE (16:26)
[2018-12-21] MEDS ORDERED: CEFOXITIN SODIUM 2 GM IVPB ONE (16:34)
[2018-12-21] MEDS ORDERED: KETOROLAC TROMETHAMINE 30 MG/1 ML VIAL ONE (17:28)
[2018-12-21] MEDS ORDERED: NEOSTIGMINE METHYLSULFATE 0.5 MG/1 ML - 10 ML MDV ONE (17:32)
[2018-12-21] MEDS ORDERED: BUPIVACAINE HCL 0.5% 250 MG/50 ML VIAL IJ ONE (18:03)
--- NOTE | 2018-12-21 18:03 | OP ---
Operative Note - Note: Operative Date: 12/21/18 Pre-Operative Diagnosis: early acute appendicitis Operation: laparoscopic appendectomy Findings: injected appendix, little yellow/oily fluid in pelvis Post-Operative Diagnosis: Same as Pre-op Surgeon: Maximiliano Forde Anesthesiologist/MECHANICAL APPRENTICE: Aleksandr Jacob (w/Jeffry Rivera CRNA) Anesthesia: General, Local (10ml 0.5% marcaine) Specimens Removed: appendix to pathology Estimated Blood Loss (mls): 5 Drains & Tubes with Location: Kaplan out at case end Drains, Volume Out (mls): 300 (UOP) Fluid Volume Replaced (mls): 800 (crystalloid) Operative Report Dictated: Yes
[2018-12-21] MEDS: ACETAMINOPHEN 325 MG TABLET (FP) PO SCH (20:59)
[2018-12-21] MEDS ORDERED: ACETAMINOPHEN 325 MG TABLET (FP) PO SCH (21:00)
[2018-12-21] MEDS ORDERED: CEFOXITIN SODIUM 2 GM in DEXTROSE 5%-WATER 100 ML IVPB ONE (23:00)
[2018-12-22] MEDS ORDERED: IBUPROFEN 600 MG TABLET (FP) PO SCH
[2018-12-22] MEDS: IBUPROFEN 600 MG TABLET (FP) PO SCH ×3 (00:08→14:29)
[2018-12-22] MEDS: oxyCODONE HCL 5 MG TABLET PO PRN ×2 (01:59→10:02)
[2018-12-22] MEDS: LACTATED RINGERS SOLUTION 1,000 ML IV SCH ×2 (02:01→02:02)
[2018-12-22] MEDS: ACETAMINOPHEN 325 MG TABLET (FP) PO SCH ×3 (03:20→14:29)
[2018-12-22 12:28] VITALS: BP 133/64; PULSE 97; TEMP 98.1
--- NOTE | 2018-12-22 16:15 | DS ---
Physical Examination Vital Signs: Vital Signs Temperature 98.1 F 12/22/18 10:00 Pulse Rate 97 H 12/22/18 10:00 Respiratory Rate 18 12/22/18 10:00 Blood Pressure 133/64 12/22/18 10:00 O2 Sat by Pulse Oximetry (%) 99 12/22/18 10:00 Findings/Remarks: Pt seen and examined in bed. Feeling better this afternoon, took both tylenol and oxycodone around 10am, but just tylenol at 3, along with ibuprofen between. Has been ambulating, voiding, tolerated diet, little flatus but no BM yet. Pain is manageable on po meds. No fevers. Constitutional: Yes: Well Nourished, No Distress, Calm Eyes: Yes: Conjunctiva Clear, EOM Intact HENT: Yes: Atraumatic, Normocephalic Cardiovascular: Yes: Regular Rate and Rhythm, Tachycardia (slight) Respiratory: Yes: Regular, CTA Bilaterally. No: Wheezes Gastrointestinal: Yes: Normal Bowel Sounds, Soft, Distention (mild), Tenderness (RLQ and less LLQ, no R/G, also incisional mainly at umbilicus) Renal/: No: Kaplan Present, Incontinence Extremities: No: Cool, Cyanosis Integumentary: Yes: Incision (x3 dressed). No: Jaundice, Rash Wound/Incision: Yes: Steri Strips (under dressings), Dressing Dry and Intact (x3 , tiny dried strikethrough on suprapubic site). No: Dressing Removed Neurological: Yes: Alert, Oriented Psychiatric: Yes: Alert, Oriented Labs: no new labs Discharge Summary Reason For Visit: EARLY APPENDICITIS Current Active Problems Early acute Appendicitis (Acute) Periumbilical pain (Acute) Asthma (Acute) Procedures: Principal: laparoscopic appendectomy Hospital Course: 23yo M with h/o asthma presented to ER with <1d of periumbilical pain and minimal associated symptoms. Labs were all in normal range, but CT showed mildly enlarged appendix possibly consistent with early acute appendicitis. He was tender in the RLQ to ER, but less after pain medication. He was taken for uneventful laparoscopic appendectomy and admitted satellite to surgery, with findings of injected appendix, mildly possibly enlarged, and a little yellow fluid in the pelvis, which was suctioned out. He got preop and postop doses of Cefoxitin for antibiotics, and postoperatively has ambulated, voided and tolerated diet. Pain has been managed with alternating tylenol and ibuprofen, but he has also needed a couple doses of oxycodone, so will be discharged home with Rx for small quantity of Percocet prn as well. He has lifting restrictions for the next 4 weeks and may not be able to return to work light duty until fully cleared, so is given a note to that effect. He will f/u with his PMD and surgery in about 2 weeks. Time spent on discharge 35 minutes. Condition: Good - Instructions Diet, Activity, Other Instructions: Postoperative instructions: You had a laparoscopic appendectomy on 12/21/[address] Maximiliano Forde of [facility]. Activity: Resume your usual activities gradually, but no heavy exertion or lifting more than 10-15 pounds for 1 month. Remove dressings 48 hours after surgery; sticky tapes underneath will fall off by themselves. You may shower daily starting then, just pat the incision areas dry. No bath or swimming until skin incisions have healed. Eat lightly at first, but advance to your usual diet as tolerated. Pain: For pain, you may use and alternate Tylenol (acetaminophen) 1-2 pills and/ or ibuprofen 200 mg (1-3 pills) every 6 hours each as needed; this means that you can take one OR the other at 3-hour intervals. If you are prescribed a Tylenol/narcotic combination for severe pain, use it instead of plain Tylenol as needed and switch back when your pain starts decreasing. Do not take more than 4000mg of acetaminophen in a day. Take medications as prescribed or indicated on the labeling. Follow-up: Call Dr. Forde's office at [phone] to make your postop appointment (Wednesday in approximately 2 weeks after surgery). Clinic is held in the [facility] on the first floor of [facility]. Call the office if you have: * increasing pain not responsive to pain medication * fever of 101F or higher * vomiting * unusual or increasing bleeding or drainage from wounds * increasing redness or swelling at wound sites Also, see your primary medical doctor within 1-2 weeks. Referrals: Vaishali Maddox MD [Primary Care Provider] - Disposition: HOME - Home Medications Comprehensive Discharge Medication List: Ambulatory Orders Acetaminophen [Tylenol .Regular Strength -] 650 mg PO Q6H tablet 12/22/18 Albuterol Sulfate Inhaler - [Ventolin HFA Inhaler -] 2 puff IH Q4H PRN inhaler 12/22/18 Ibuprofen [Motrin -] 600 mg PO Q6H tablet 12/22/18 Oxycodone HCl/Acetaminophen [Percocet 5-325 mg Tablet] 1 tab PO Q6H #12 tablet MDD 6 12/22/18
--- NOTE | 2018-12-26 16:54 | PATH ---
Surgical Pathology Report Patient Name: THO PHILIP [facility]. Rec. #: [id number] /Age/Gender: 1995 (Age: 23) / M Account: [id number] Location: AMBULATORY SURG Taken: 12/21/2018 Received: 12/22/2018 Reported: 12/26/2018 Physicians: Maximiliano Forde M.D. PHYSICIAN EMERGENCY DEPT Specimen(s) Received APPENDIX Clinical History Early appendicitis Final Diagnosis APPENDIX, LAPAROSCOPIC APPENDECTOMY: ACUTE APPENDICITIS AND FIBROUS OBLITERATION OF TIP. Electronically Signed Bonny Monique M.D. Gross Description Received in formalin, labeled "appendix," is a 7 cm. in length vermiform appendix with a stapled margin of resection and moderate attached fat. The serosa is najera-gonzales and. Sectioning reveals a dilated lumen containing brown fecal material. The wall of the appendix averages 0.1 cm. in thickness. Rock Crusher sections are submitted in one cassette. 12/22/2018 saudi12/22/2018
--- NOTE | 2018-12-31 08:04 | OP ---
DATE OF OPERATION: 12/21/2018 PREOPERATIVE DIAGNOSIS: Early acute appendicitis. POSTOPERATIVE DIAGNOSIS: Early acute appendicitis. PROCEDURE PERFORMED: Laparoscopic appendectomy. SURGEON: Jamil Forde MD ANESTHESIA: General endotracheal and local 10 mL of 0.5% Marcaine. ESTIMATED BLOOD LOSS: 5 mL. FLUIDS: Crystalloid, 800 mL. URINE OUTPUT: 300 mL. DRAINS: Kaplan at the end of the case. SPECIMEN: Appendix to Pathology. FINDINGS: An injected appendix with very little yellow/oily fluid in the pelvis, which was suctioned. DISPOSITION: Stable and extubated to PACU. INDICATIONS FOR PROCEDURE: The patient is a 23-year-old male with a history of asthma and a nasal fracture repair who presented to the emergency room with periumbilical pain beginning the morning prior who initially thought it was related to bad food, but it persisted throughout the day despite ibuprofen and multiple episodes of diarrhea. He had a little nausea, but no vomiting, had no history of recent illness. In the emergency room, he was afebrile with a white count of 9.[address] showed a mildly prominent appendix with no significant surrounding inflammation potentially consistent with early appendicitis. He was seen in the ER, noted not to be tender at the time after pain medication had been given, but reported having had some previous central abdominal tenderness prior to the pain medication. CT images were reviewed and noted to show a small area of hyper-enhancement, but no significant periappendiceal inflammation. A question remained whether this was hyperemia, fecalith, or simply evidence of an early appendicitis. Risks, benefits, and alternatives of laparoscopic possible open appendectomy were discussed with the patient including, but not limited to, bleeding, infection, injury to adjacent structures, intestinal leak or injury, intraabdominal abscess, incisional hernia, and need for further procedures. Alternatives were also discussed including antibiotics with delayed or no surgery, with associated risks of failure of non-operative therapy, perforation, sepsis, recurrence, or . The patient was interested and willing to undergo appendectomy and signed informed consent for the same and is now brought to the OR for the same. OPERATIVE TECHNIQUE: The patient was brought to the operating room and laid supine on the operating table. Sequential compression devices were applied to bilateral lower extremities, and a gram of Cefoxitin was given as preoperative antibiotic as he had not yet received anything in the emergency room. After induction and intubation by Anesthesia, a Kaplan catheter was placed in the patients bladder which was removed at the end of the case. His abdomen was clipped of hair in the pubic area and his abdomen prepped and draped in sterile fashion A small infraumbilical incision was made with a scalpel and carried carried into subcutaneous tissues with electrocautery until the abdominal wall fascia was identified, scored, and elevated with Kate clamps. The peritoneum was entered bluntly with the tip of a clamp, and a fingertip inserted to ensure entry into the abdominal cavity and the absence of any underlying adhesions. A stay suture of 0 Vicryl was placed in the fascia in figure-of-8 fashion for later closure, and a Wilberto trocar introduced directly into the abdominal cavity and secured in place with a balloon. The abdomen was insufflated with carbon dioxide. The patient was placed in Trendelenburg position with the right side planed somewhat upward, and the laparoscope inserted to inspect the abdominal cavity. The cecum was first identified, and the tinea followed down to locate the appendix. There was a very, very scant amount of yellow, slightly oily fluid noted in the pelvis, which was later suctioned before the end of the case. Two additional 5-mm ports were placed under direct vision in the left lower quadrant and suprapubic areas, and the camera switched to the left lower quadrant port. Graspers were used at the other 2 ports to again identify the cecum and follow the tinea down to the appendix, which was then grasped and elevated and noted to appear somewhat injected with prominent blood vessels on its surface. It was then held up and a [place] dissector used to create a window at the base of the appendix, where the mesentery joined the cecum, and a 45 load of the purple load of the Endo WILTON stapler introduced to transect the base of the appendix at the cecal junction. Staple line was noted to be hemostatic, and the remainder of the appendix held up such that the white load of the Endo WILTON stapler could then be used to transect the mesoappendix. Once this had been accomplished, the appendix was set aside in the right lower quadrant, and again the suction merchant tailor used to suction a little bit of fluid from the pelvis and a little bit of blood from the operative site. Again hemostasis was assured and noted to be complete. The appendix was then placed in an EndoCatch bag and drawn up into the Wilberto trocar site. The suprapubic port was then removed under direct vision. The Wilberto trocar and the appendix removed also under direct vision directly out the umbilical site, at which point, the camera and left lower quadrant port were also removed from the abdominal cavity and the abdomen exsufflated of carbon dioxide. The stay suture at the umbilicus was tied to close the fascia there. Local anesthetic was infiltrated into all 3 port sites and hemostasis was achieved in the port sites with electrocautery where necessary. The appendix was passed off the table for a specimen to Pathology. Hemostasis was achieved in the port sites with electrocautery where needed. The patient, of course, had been returned to neutral position and the skin was closed with 4-0 Vicryl subcuticular sutures including a running at the umbilicus. Benzoin and Steri-Strips were applied to all incisions, and dressings of gauze and Tegaderm placed over these. The patients Kaplan catheter was removed at the end of the case. Counts were correct at the end of the case. The patient was then awakened and extubated by Anesthesia, returned to a stretcher, and taken back to the recovery room in stable condition having tolerated the procedure well. Miko [id number]
== END 2018-12-22 18:00 | disposition home or self-care (01) ==
LOC: JER 08:55 → JASUSAT 15:46 → J8W 19:45 → JASUSAT 12-22 18:00
PROVIDERS: ATTEND Surgery
PROC: 0DTJ4ZZ Resection of Appendix, Percutaneous Endoscopic Approach (ICD-10-PCS; principal; 2018-12-21 16:30)
DX: K35.80 Unspecified acute appendicitis (principal)
CPT/HCPCS: 36415; 74176-TC; 80053; 81003; 85025; 88304-TC; 94760; 99285-25; J0131; J7030